=== PATIENT | male | born 1980 | race Caucasian/White ===

== ENCOUNTER 2017-12-30 15:38 | Emergency (ER) | payer MEDICAID ==
--- NOTE | 2017-12-30 16:08 | ED Physician Chart ---
ED Chief Complaint/HPI - Patient Information Date Seen:: 12/30/17 Time Seen:: 15:55 History of Present Illness:: GENERALIZED SEIZURE THIS FOR 37-YEAR-OLD MALE WAS ARRESTED BY [employer] police and was being transported in the backseat. The patient was observed to have repetitive jerking movements which were symmetrical and involve the patient striking his head on the back of the seat. He denies having any prior history of seizure activity. He is addicted to heroin and thinks he may have been going through withdrawal. He has a mild headache which he rates as a 3/10 severity. The patient had no aura prior to onset of seizure activity. Patient did not bite his tongue or lose control of bladder function during the seizure activity. The patient claims loss of memory immediately before and following seizure activity. Allergies:: Allergies Allergy/AdvReac Type Severity Reaction Status Date / Time No Known Allergies Allergy Verified 12/30/17 15:49 Vitals:: Vital Signs - 8 hr 12/30/17 15:49 Temp 98.5 F HR 73 RR 15 BP 129/70 O2 Sat % 98 Review:: Nurse's Note Reviewed (TRIAGE PAPER NOTE) ED Review of Systems - Review of Systems General/Constitutional: No fever, No chills, No weight loss, No edema, No loss of appetite Skin: No skin lesions, No rash, Other ( Tattoo of " THE Joker" OVER HIS LEFT ANTERIOR CHEST.) Head: No headache, No light-headedness Eyes: No loss of vision, No pain, No diplopia Neck: No neck pain, No swelling, No stiffness, No mass noted Cardio Vascular: No chest pain, No palpitations, No edema Pulmonary: No SOB, No cough, No sputum GI: No nausea, No vomiting, No pain, No constipation G/U: No dysuria, No frequency, No hematuria ( at the time of the physical examination the patient denied any dysuria, urinary frequency or hematuria. Just prior to his being released from the emergency department, the patient did complain of dysuria. A urine specimen was sent and was negative for any evidence of UTI.) Musculoskeletal: No bone or joint pain, No back pain Endocrine: No polyuria Psychiatric: No prior psych history, No anxiety, No suicidal ideation, No auditory hallucination Hematopoietic: No bruising, No lymphadenopathy Allergic/Immuno: No urticaria, No angioedema Neurological: No weakness, No headache, Seizure, No dizziness, No confusion, No vertigo ED Past Medical History - Past Medical History Past Medical History: No significant medical hx, Other ( No history of prior seizure activity.) Family Medical History - Family Member Mother Hx Family Cancer: No Hx Family Coronary Artery Disease: No Hx Family Congestive Heart Failure: No Hx Family Stroke: No Hx Family Seizures: No Hx Family Dementia: No Hx Family AIDS: No Hx Family Hepatitis: No ED Physical Exam - Physical Examination General/Constitutional: Awake, Well-developed, well-nourished, Alert, No distress, Non-toxic appearing, Ambulatory Other Gen/Cons comments:: Normal finger nose testing in the right upper extremity. The left upper extremity was handcuffed to the rail of the gurney. NORMAL. Heal-newton testing and lower extremities. Head: Atraumatic Other Head comments:: The head was closely examined both visually and by palpation for any evidence of trauma and none was found. Eyes: Lids, conjuctiva normal, PERRL (S FOUND. NOTICED AGNE), EOMI ENMT: External ears, nose nl, Nasal exam nl, Oropharynx nl Other ENMT comments:: . No bite salomon on time Neck: Nontender, Full ROM w/o pain, No JVD, No nuchal rigidity, No mass, No stridor Respiratory: Nl effort/Exclusion, Clear to Auscultation, No Wheeze/Rhonchi/Rales Cardio Vascular: RRR, No murmur, gallop, rubs, NL S1 S2 (. Normal pulses in all four extremities) GI: No tenderness/rebounding/guarding, No organomegaly, No hernia, Nondistended , No mass/bruits, No McBurney tenderness (. Rectal examination deferred at my discretion.) : No CVA tenderness, NL external genitalia Extremities: No tenderness or effusion, Full ROM, normal strength in all extremities, No edema Neuro/Psych: Alert/oriented, DTR's symmetric, Normal sensory exam, Normal motor strength, Mood normal, Normal gait, No focal deficits Misc: Normal back, No paraspinal tenderness ED Labs/Radiology/EKG Results - Lab Results Results: Laboratory Tests 12/30/17 12/30/17 12/30/17 16:17 16:17 18:04 WBC 7.9 RBC 4.21 L Hgb 12.6 Hct 37.7 L MCV 89.7 MCH 29.9 MCHC Differential 33.4 RDW 12.2 Plt Count 341 MPV 6.8 Neutrophils % 77.0 Lymphocytes % 11.9 L Monocytes % 7.7 Eosinophils % 2.9 Basophils % 0.5 Sodium 131 L Potassium 3.7 Chloride 95 L Carbon Dioxide 29.1 Anion Gap 10.6 BUN 13 Creatinine 0.6 L Est GFR ( Amer) > 60.0 Est GFR (Non-Af Amer) > 60.0 BUN/Creatinine Ratio 21.7 Glucose 115 H Calcium 9.6 Total Bilirubin 0.4 AST 462 H ALT 437 H Alkaline Phosphatase 180 H Total Protein 7.4 Albumin 3.4 L Globulin 4.0 Albumin/Globulin Ratio 0.9 L Urine Source RANDOM Urine Color YELLOW Urine Clarity CLEAR Urine pH 8.0 Ur Specific [place] 1.010 Urine Protein NEGATIVE Urine Glucose (UA) NEGATIVE Urine Ketones NEGATIVE Urine Blood NEGATIVE Urine Nitrate NEGATIVE Urine Bilirubin NEGATIVE Urine Urobilinogen 1.0 Ur Leukocyte Esterase NEGATIVE . LABORATORY STUDIES: the CBC was normal with no leukocytosis, anemia or platelet disorder. Metabolic studies showed no abnormalities of electrolytes, normal renal function, nd abnormal liver function . A CT scan of the head was negative for any evidence of trauma for abnormal pathology. ED Assessment - Assessment General Assessment: . CASE SUMMARY: this 37-year-old male was brought to the emergency department for clearance to book. During transport the patient had motor movement suggested go way acute seizure. During the episode the patient experienced no significant head trauma, did not bite his tongue, and was not t incontinent for urine . Laboratory testing showed no abnormality of electrolytes. There was no evidence for hypo or hyperglycemia. CT scan of the head was negative for any acute abnormality. The patient was medically cleared for booking by the [facility] Department.. Discharged in stable condition ED Septic Shock - . Is Septic Shock (SBP<90, OR Lactate>4 mmol\\L) present?: No - <6hrs of presentation: Vital Signs: Vital Signs - 8 hr 12/30/17 15:49 Temp 98.5 F HR 73 RR 15 BP 129/70 O2 Sat % 98 ED Reassessment (Disposition) - Reassessment Reassessment Condition:: Unchanged - Diagnosis Diagnosis:: NEW ONSET OF GENERALIZED SEIZURE. HISTORY OF HEROIN ADDICTION ED Discharge Plan - Patient Disposition Admit/Discharge/Transfer: Long-Term/Half-Way Condition at Disposition: Stable Instructions: Seizure, Adult, Seizure, Adult, [id number]
[2017-12-30 16:24] LABS: % BASOPHILS 0.5 % (0.0-2.0); % EOSINOPHILS 2.9 % (0.0-5.0); % LYMPHOCYTES 11.9 % (20.0-50.0); % MONOCYTES 7.7 % (2.0-10.0); EOSINOPHILE ABSOLUTE 0.2 Th/cmm (0.1-0.4); HEMATOCRIT 37.7 % (41.0-60); HEMOGLOBIN 12.6 gm/dL (12-16); LYMPHOCYTE ABSOLUTE 0.9 Th/cmm (1.5-3.0); MEAN CELL VOLUME 89.7 fl (80-99); MEAN CORPUSCULAR HEMOGLOBIN 29.9 pg (26.0-30.0); MEAN CORPUSCULAR HGB CONC 33.4 pg (28.0-36.0); MEAN PLATELET VOLUME 6.8 fl; MONOCYTE ABSOLUTE 0.6 Th/cmm (0.3-1.0); NEUTROPHILE ABSOLUTE 6.2 Th/cmm (1.8-8.0); PLATELET COUNT 341 Th/cmm (150-400); RED BLOOD COUNT 4.21 Mil/cmm (4.30-5.70); RED CELL DISTRIBUTION WIDTH 12.2 % (11.5-20.0); WHITE BLOOD COUNT 7.9 Th/cmm (4.8-10.8)
[2017-12-30 16:40] LABS: ALB/GLOB RATIO 0.9 (1.0-1.8); ALBUMIN 3.4 gm/dL (4.2-5.5); ALKALINE PHOSPHATASE 180 U/L (34-104); ANION GAP 10.6 (7.0-16.0); BILIRUBIN,TOTAL 0.4 mg/dL (0.3-1.0); BUN - UREA NITROGEN 13 mg/dL (7-25); CALCIUM SERUM 9.6 mg/dL (8.6-10.3); CARBON DIOXIDE 29.1 mEq/L (21.0-31.0); CHLORIDE 95 mEq/L (98-107); CREATININE - SERUM 0.6 mg/dL (0.7-1.3); GFR AFRICAN-AMERICAN > 60.0 ml/min (>90); GFR NON AFRICAN-AMERICAN > 60.0 ml/min; GLUCOSE 115 mg/dL (70-105); POTASSIUM SERUM 3.7 mEq/L (3.5-5.1); SGOT 462 U/L (13-39); SGPT/ALT 437 U/L (7-52); SODIUM SERUM 131 mEq/L (136-145); TOTAL PROTEIN,SERUM 7.4 gm/dL (6.0-8.3)
[2017-12-30 18:05] LABS: URINE MICROSCOPIC INDICATED? YES; URINE SOURCE RANDOM
[2017-12-30 18:07] LABS: URINE BILIRUBIN NEGATIVE (NEGATIVE); URINE BLOOD NEGATIVE (NEGATIVE); URINE GLUCOSE (UA) NEGATIVE (NEGATIVE); URINE KETONE NEGATIVE (NEGATIVE); URINE LEUKOCYTE ESTERASE NEGATIVE (NEGATIVE); URINE NITRATE NEGATIVE (NEGATIVE); URINE PROTEIN NEGATIVE (NEGATIVE)
[2017-12-30 18:08] LABS: URINE CLARITY CLEAR (CLEAR); URINE COLOR YELLOW
--- NOTE | 2017-12-31 09:40 | Diagnostic Imaging Report ---
CT scan of the brain without contrast History: Trauma Total DLP equals 573 CTDI equals 33.4 Axial sections were obtained from the base of the skull to the vertex. There is a normal ventricular system size. No focal parenchymal lesions are seen. No evidence of any mass effect or shift of midline structures. No extra-axial masses or abnormal fluid collections. Impression: Negative examination
== END 2017-12-30 18:10 | disposition still patient (30) ==
LOC: ER 15:38
DX: R56.9 Unspecified convulsions (principal); Z59.0 Homelessness
CPT/HCPCS: 36415-UA; 70450-TC; 80053-TC; 81001-TC; 85025-TC